=== PATIENT | female | born 1950 | race Caucasian/White ===

== ENCOUNTER → 2020-11-08 | Outpatient (CLI) | payer MEDICARE ==
[~2020-11-08] VITALS: Ht 162 cm; Wt 66.0 kg
[~2020-11-08] MED LIST: CATHETER FLUSH 10 ML SYR IV PRN
[2020-11-08 08:00] VITALS: BP 181/83
--- NOTE | 2020-11-08 12:27 | Cardiology Stress Test Report ---
Stress Test Report Date of Procedure/Referring: Date of Procedure: Nov 08, 2020 PCP Alfa Gordon MD Admitting Physician Hawk Batres DO Indications: HTN Baseline Heart Rate: 74 Baseline Blood Pressure: Blood Pressure Systolic: 181 Blood Pressure Diastolic: 83 Vital Signs Date Time Temp Pulse Resp B/P (MAP) Pulse Ox O2 Delivery O2 Flow Rate FiO2 11/08/20 08:00 74 181/83 (115) 95 Baseline Vital Signs Vital Signs Date Time Temp Pulse Resp B/P (MAP) Pulse Ox O2 Delivery O2 Flow Rate FiO2 11/08/20 08:00 74 181/83 (115) 95 Baseline EKG: Baseline EKG: NSR Summary: After explaining the procedure and details to the patient, she signed the consent and was brought to the stress nuclear laboratory. Patient exercised on standard [place] protocol, EKG, heart rate and blood pressure were monitored continuously, resting and stress doses of radio tracer were injected, imaging was acquired and reviewed in the short axis, horizontal long axis and vertical long axis views Patient was able to exercise for a total of 4.30 minutes on [place] protocol, METs 6.4 Maximum heart rate 131 Maximum blood pressure 207/90 Stress EKG, Minimal nondiagnostic changes Recovery EKG, Return to baseline TID: 0.93 SSS: 5 SDS: 1 EF: 76 Conclusion: 1. Good exercise tolerance for a total of 4-minute 32nd on standard [place] protocol total of 6.4 METS achieving 88% of maximal expected heart rate 2. Severe hypertensive response to exercise with peak blood pressure 207/90 return to baseline during recovery 3. Minimal nondiagnostic EKG changes with exercise return to baseline during recovery 4. Breast attenuation with typical female pattern and no significant ischemia or infarction on SPECT images 5. Small left ventricular size with good contractility, ejection fraction 76% ALFA GORDON MD Nov 08, 2020 12:27
== END ==
LOC: CARD 07:15
PROVIDERS: ATTEND Internal Medicine Cardiovascular Disease
DX: I10 Essential (primary) hypertension (principal)
CPT/HCPCS: 78452; 93017; A9502